=== PATIENT | male | born 1995 | race Caucasian/White ===

== ENCOUNTER 2017-05-03 11:03 | Emergency (ER) | payer BC, OTHER ==
[2017-05-03] MEDS: IPRATROPIUM (NEB) 0.5 MG/2.5 ML AMP NEB (12:30)
[2017-05-03] MEDS: ALBUTEROL 0.083% (NEB) 2.5 MG/3 ML AMP NEB (12:30)
[2017-05-03] MEDS: SOD CHLORIDE 0.9% 1,000 ML IV (12:40)
[2017-05-03] MEDS: KETOROLAC 30 MG INJ IV (12:41)
[2017-05-03] MEDS: ACETAMINOPHEN 500 MG TAB PO (12:41)
== END 2017-05-03 14:59 | disposition home or self-care (01) ==
LOC: FTE 11:03
DX: J10.1 Influenza due to other identified influenza virus with other respiratory manifestations (principal)
CPT/HCPCS: 71045; 87400; 94664; 96374; 99284-25